=== PATIENT | female | born 1955 | race American Indian/Alaskan Native ===

== ENCOUNTER 2016-12-10 13:23 | Inpatient (IN) | payer OTHER ==
--- NOTE | 2016-12-10 14:07 | Emergency Department Report ---
Chief Complaint: Chest Pain Stated Complaint: CHEST PAIN/FEVER/HEADACHE Time Seen by Provider: 12/10/16 13:56 - HPI History of Present Illness: 51-year-old female presents today with chest pain 4 days. Positive for cough and cold symptoms 2 weeks. Positive for subjective fever, nausea, shortness of breath post coughing. Denies abdominal pain. - ROS Review of Systems: Per HPI - Exam Vital Signs: Vital Signs 12/10/16 13:49 Temperature 98.3 F Pulse Rate 68 Respiratory 20 Rate Blood Pressure 151/83 O2 Sat by Pulse 97 Oximetry Physical Exam: General: 61-year-old female in no acute distress. Well-developed, well- nourished. CV: Regular rate and rhythm. Lungs: Rhonchi noted over the right lower lobe. MSE screening note: Focused history and physical exam performed. Due to findings the following was ordered: ED Disposition for MSE Condition: Stable
[2016-12-10 14:40] LABS: Basophils % (Auto) 0.2 % (0.0-1.8); Hematocrit 40.9 % (30.3-42.9); Hemoglobin 13.2 gm/dl (10.1-14.3); Mean Corpuscular HGB Conc 32 % (30-34); Mean Corpuscular Hemoglobin 28 pg (28-32); Mean Corpuscular Volume 88 fl (79-97); Platelet Count 200 K/mm3 (140-440); Red Blood Count 4.67 M/mm3 (3.65-5.03); Red Cell Distribution Width 13.9 % (13.2-15.2); White Blood Count 8.9 K/mm3 (4.5-11.0)
[2016-12-10 14:59] LABS: Anion Gap 17 mmol/L; BUN/Creatinine Ratio 8.75; Blood Urea Nitrogen 7 mg/dL (7-17); Calcium 8.6 mg/dL (8.4-10.2); Carbon Dioxide 29 mmol/L (22-30); Chloride 101.4 mmol/L (98-107); Glucose 126 mg/dL (65-100); Potassium 4.1 mmol/L (3.6-5.0); Sodium 143 mmol/L (137-145)
[2016-12-10 15:02] LABS: Creatine Kinase MB 1.9 ng/mL (0.0-4.0)
--- NOTE | 2016-12-10 15:11 | XRay Report ---
PORTABLE CHEST INDICATION: Chest pain. COMPARISON: None similar. FINDINGS: Portable, frontal chest radiograph demonstrates mild exaggerated cardiomediastinal silhouette/possible cardiomegaly with slight interstitial bronchovascular prominence and minimal fluid or thickening along the right minor fissure. No large pleural effusions. Thoracic spondylosis. CONCLUSION: Slight/early interstitial edema possibly developing versus other possibilities as chronic interstitial lung disease. Please also correlate clinically and with prior chest imaging, if available. Thank you for the opportunity to participate in this patient's care.
[2016-12-10] MEDS ORDERED: XOPENEX IH ONE (22:23)
[2016-12-10] MEDS ORDERED: ATROVENT IH ONE (22:23)
[2016-12-10] MEDS ORDERED: TESSALON PERLES PO ONE (22:24)
[2016-12-10] MEDS ORDERED: NITRO-BID 2% TP ONE (22:28)
[2016-12-10] MEDS ORDERED: CATAPRES PO ONE (22:28)
[2016-12-10] MEDS ORDERED: ASPIRIN PO ONE (22:28)
--- NOTE | 2016-12-10 22:28 | Emergency Department Report ---
HPI - General Chief Complaint: Chest Pain Time Seen by Provider: 12/10/16 13:56 - HPI HPI: Room 10 The patient is a 61-year-old female presenting with chief complaint of cough and chest pain. The patient states for past 2 weeks is her cough was originally nonproductive has then become productive of originally greenish yellow and brown sputum. The patient denies rhinorrhea nausea vomiting or diarrhea. Patient does admit to shortness of breath and resolution may have had a subjective fever. The patient states for past 2 days she would have a substernal chest pain described as heaviness whenever she coughs. The patient states DayQuil helps her symptoms. Location: Chest, lungs Duration: 2 weeks Quality: Heaviness Severity: Moderate Modifying factors: [see above] Context: [see above] Mode of transportation: Unknown ED Past Medical Hx - Past Medical History Hx Hypertension: Yes Hx Headaches / Migraines: Yes - Surgical History Hx Breast Surgery: Yes (bilateral reduction) Additional Surgical History: hysterectomy - Family History Family history: no significant - Social History Smoking Status: Former Smoker (none 23 years) Substance Use Type: None - Medications Home Medications: Home Medications Medication Instructions Recorded Confirmed Last Taken Type Hydrochlorothiazide [HCTZ] 25 mg PO QDAY 12/10/16 12/10/16 12/09/16 History Metoprolol [Lopressor TAB] 50 mg PO DAILY 12/10/16 12/10/16 12/09/16 History ED Review of Systems ROS: Stated complaint: CHEST PAIN/FEVER/HEADACHE Other details as noted in HPI Comment: All other systems reviewed and negative Constitutional: fever. denies: chills Eyes: denies: eye pain, eye discharge, vision change ENT: denies: ear pain, throat pain Respiratory: cough, shortness of breath. denies: wheezing Cardiovascular: chest pain. denies: palpitations Endocrine: no symptoms reported Gastrointestinal: denies: abdominal pain, nausea, diarrhea Genitourinary: denies: urgency, dysuria, discharge Musculoskeletal: denies: back pain, joint swelling, arthralgia Skin: denies: rash, lesions Neurological: denies: headache, weakness, paresthesias Psychiatric: denies: anxiety, depression Hematological/Lymphatic: denies: easy bleeding, easy bruising Physical Exam - Physical Exam Vital Signs: Vital Signs 12/10/16 12/10/16 13:49 21:57 Temperature 98.3 F 98.2 F Pulse Rate 68 54 L Respiratory 20 20 Rate Blood Pressure 151/83 Blood Pressure 182/82 [Right] O2 Sat by Pulse 97 99 Oximetry Physical Exam: GENERAL: The patient is well-developed well-nourished female lying on stretcher not appearing to be in acute distress. [] HEENT: Normocephalic. Atraumatic. Extraocular motions are intact. Patient has moist mucous membranes. NECK: Supple. Trachea midline CHEST/LUNGS: Trace rhonchi, faint wheezing. There is no respiratory distress noted. HEART/CARDIOVASCULAR: Regular. There is no tachycardia. There is no gallop rub or murmur. ABDOMEN: Abdomen is soft, nontender. Patient has normal bowel sounds. There is no abdominal distention. SKIN: There is no rash. There is no diaphoresis. NEURO: The patient is awake, alert, and oriented. The patient is cooperative. The patient has normal speech and gait. MUSCULOSKELETAL: There is no evidence of acute injury. ED Course Vital Signs 12/10/16 12/10/16 13:49 21:57 Temperature 98.3 F 98.2 F Pulse Rate 68 54 L Respiratory 20 20 Rate Blood Pressure 151/83 Blood Pressure 182/82 [Right] O2 Sat by Pulse 97 99 Oximetry ED Medical Decision Making - Lab Data Result diagrams: 12/10/16 14:25 12/10/16 14:25 Laboratory Tests 12/10/16 12/10/16 12/10/16 14:25 14:25 14:25 WBC 8.9 RBC 4.67 Hgb 13.2 Hct 40.9 MCV 88 MCH 28 MCHC 32 RDW 13.9 Plt Count 200 Lymph % (Auto) 32.8 [place] % (Auto) 6.3 Eos % (Auto) 1.0 Baso % (Auto) 0.2 Lymph # 2.9 [place] # 0.6 Eos # 0.1 Baso # 0.0 Seg Neutrophils % 59.7 Seg Neutrophils # 5.3 Sodium 143 Potassium 4.1 Chloride 101.4 Carbon Dioxide 29 Anion Gap 17 BUN 7 Creatinine 0.8 Estimated GFR > 60 BUN/Creatinine Ratio 8.75 Glucose 126 H Calcium 8.6 Total Creatine Kinase 179 H CK-MB (CK-2) 1.9 CK-MB (CK-2) Rel Index 1.0 Troponin T < 0.010 NT-Pro-B Natriuret Pep Lipase 32 12/10/16 12/10/16 12/10/16 16:49 20:09 22:35 WBC RBC Hgb Hct MCV MCH MCHC RDW Plt Count Lymph % (Auto) [place] % (Auto) Eos % (Auto) Baso % (Auto) Lymph # [place] # Eos # Baso # Seg Neutrophils % Seg Neutrophils # Sodium Potassium Chloride Carbon Dioxide Anion Gap BUN Creatinine Estimated GFR BUN/Creatinine Ratio Glucose Calcium Total Creatine Kinase CK-MB (CK-2) CK-MB (CK-2) Rel Index Troponin T < 0.010 < 0.010 NT-Pro-B Natriuret Pep 151.1 Lipase - EKG Data -: EKG Interpreted by Me EKG shows normal: sinus rhythm Rate: normal - EKG Data When compared to previous EKG there are: previous EKG unavailable Interpretation: nonspecific ST-T wave [place] (deep T-wave inversions in leads 1, 2 , 3, aVF, V2, V3, V4, V5, V6. ST segment depressions in leads 2, 3, aVF, V3, V4 , V5, V6) - Radiology Data Radiology results: image reviewed (chest x-ray) interpreted by me: Chest x-ray-no focal infiltrates, no pneumothorax - Differential Diagnosis ACS, pneumonia, bronchitis, CHF Critical care attestation.: If time is entered above; I have spent that time in minutes in the direct care of this critically ill patient, excluding procedure time. ED Disposition Clinical Impression: Chest pain, T wave inversion in EKG, Cough Disposition: OP ADMITTED IP TO THIS HOSP Is pt being admited?: Yes Does the pt Need Aspirin: Yes Condition: Fair Instructions: Chest Pain (ED) Referrals: PRIMARY CARE, [Primary Care Provider] - 3-5 Days Time of Disposition: 22:42 (hospitalist notified)
--- NOTE | 2016-12-10 22:40 | History and Physical Report ---
History of Present Illness Date of examination: 12/10/16 History of present illness: 61-year-old woman history of hypertension, migraine comes emergency room with complaints of cough productive of yellow-brown sputum 2 weeks. Admits to shortness of breath. 2 days ago she started experience chest pain in the epigastric area which she describes a dull pain, intermittent in nature, unable to say how long it last for, intensity [place], no radiation, she cannot identify exacerbating or relieving factors. Admits to nausea, no diaphoresis or palpitation Patient denies abdominal pain, hematochezia, dysuria, frequency, focal weakness , dysarthria, fever chills, polydipsia polyuria, hot or cold intolerance, easy bruisability, or rash or bleeding from mucosal membrane, rhinorrhea, epistaxis, earache, tinnitus, blurry vision, eye discharge, anxiety, depression. Other review of systems negative PAST SURGICAL HISTORY: Breast reduction, hysterectomy SOCIAL HISTORY: Denies alcohol, tobacco, drugs FAMILY HISTORY: Hypertension Medications and Allergies Allergies Allergy/AdvReac Type Severity Reaction Status Date / Time lisinopril Allergy Angioedema Verified 12/22/14 16:19 Home Medications Medication Instructions Recorded Confirmed Last Taken Type Hydrochlorothiazide [HCTZ] 25 mg PO QDAY 12/10/16 12/10/16 12/09/16 History Metoprolol [Lopressor TAB] 50 mg PO DAILY 12/10/16 12/10/16 12/09/16 History Exam - Physical Exam Narrative exam: Gen. appearance: Patient lying in bed, no apparent distress HEENT: Normocephalic, atraumatic, pupils equally round and reactive to light, extraocular movement intact, and no sclericterus,. No JVD or thyromegaly or nodule,neck supple, no carotid bruit ,mucous membranes moist, no exudate or erythema Heart: S1, S2, regular rate and rhythm Lungs: Decreased breath sounds bilaterally, breathing comfortable Abdomen: Positive bowel sounds, nontender, nondistended, no organomegaly Extremity: No edema, cyanosis, clubbing Skin: No rash, nodules, warm, dry Neuro: Oriented 3, cranial nerves II-12 intact, speech is fluent, motor and sensory intact - Constitutional Vitals: Temp Pulse Resp BP Pulse Ox 98.2 F 54 L 20 182/82 99 12/10/16 21:57 12/10/16 21:57 12/10/16 21:57 12/10/16 21:57 12/10/16 21:57 Results - Labs CBC & Chem 7: 12/10/16 14:25 12/10/16 14:25 Labs: Abnormal lab results 12/10/16 12/10/16 Range/Units 14:25 14:25 Glucose 126 H (65-100) mg/dL Total Creatine Kinase 179 H (30-135) units/L - Imaging and Cardiology EKG: image reviewed Chest x-ray: image reviewed Assessment and Plan Acute bronchitis Chest pain, rule out ACS Hypertension Admits medicine Start IV steroids, neb eyes treatment, antibiotics Check cardiac enzymes, lipid profile and obtain a stress test Start DVT prophylaxis, aspirin, IV morphine Continue outpatient medications
[2016-12-10] MEDS ORDERED: MILK OF MAGNESIA PO PRN (23:18)
[2016-12-10] MEDS ORDERED: AMBIEN PO PRN (23:18)
[2016-12-10] MEDS ORDERED: ZOFRAN IV PRN (23:18)
[2016-12-10] MEDS ORDERED: PERCOCET 5/325 PO PRN (23:18)
[2016-12-10] MEDS ORDERED: DULCOLAX PR PRN (23:18)
[2016-12-10] MEDS ORDERED: SODIUM CHLORIDE FLUSH SYRINGE 10 ML IV PRN (23:18)
[2016-12-10] MEDS ORDERED: TYLENOL PO PRN (23:18)
[2016-12-11] MEDS: DUONEB 0.5 MG-3 MG/3 ML SOLN IH SCH ×4 (03:14→19:37)
[2016-12-11 06:06] LABS: Basophils % (Auto) 0.1 % (0.0-1.8); Eosinophils % (Auto) 0.3 % (0.0-4.3); Hematocrit 38.6 % (30.3-42.9); Hemoglobin 12.4 gm/dl (10.1-14.3); Mean Corpuscular HGB Conc 32 % (30-34); Mean Corpuscular Hemoglobin 28 pg (28-32); Mean Corpuscular Volume 87 fl (79-97); Platelet Count 186 K/mm3 (140-440); Red Blood Count 4.42 M/mm3 (3.65-5.03); Red Cell Distribution Width 13.8 % (13.2-15.2); White Blood Count 9.4 K/mm3 (4.5-11.0)
[2016-12-11 06:15] LABS: Anion Gap 18 mmol/L; BUN/Creatinine Ratio 13.33; Blood Urea Nitrogen 8 mg/dL (7-17); Calcium 8.5 mg/dL (8.4-10.2); Carbon Dioxide 26 mmol/L (22-30); Chloride 102.7 mmol/L (98-107); Glucose 190 mg/dL (65-100); Potassium 3.9 mmol/L (3.6-5.0); Sodium 143 mmol/L (137-145)
[2016-12-11 06:19] LABS: Creatine Kinase MB 1.5 ng/mL (0.0-4.0)
[2016-12-11 08:42] LABS: Creatine Kinase MB 1.7 ng/mL (0.0-4.0)
[2016-12-11] MEDS ORDERED: LEXISCAN IV ONE (09:34)
--- NOTE | 2016-12-11 10:25 | Admit Criteria Form ---
Admission Criteria Documentation: PULMONARY DISEASE GRG Clinical Indications for Admission to Inpatient Care ( Place 'X' for any and all applicable criteria): Hospital admission is needed for appropriate care of the patient because of ANY ONE of the following(1): [ ]I. Impending or actual respiratory arrest ( Use Respiratory Failure Criteria for severe respiratory disease and long-term mechanical ventilation patients) (4) [ ]II. Severe airflow or ventilation abnormalities (not responsive to emergency and observation care treatment as appropriate) as indicated by ANY ONE of the following(5)(6)(7)(8) : [ ]a) PCO2 > 42 mm Hg (5.6 kPa) and pH < 7.35 (new) [ ]b) Documented PCO2 increase > 5 mm Hg (0.7 kPa) from disease baseline [ ]c) Airflow measurements[A] < 60% of previous best or predicted ( e.g., PEF <300 L/minute) despite intensive emergent treatment[B] [ ]d) Required respiratory treatments that are performable only in acute inpatient setting [X ]III. Severe respiratory findings (not responsive to emergency and observation care treatment as appropriate) including ANY ONE of the following(5)(8)(9): []a) Respiratory distress as indicated by ALL of the following(5)(10): [ ]i) Patient with ANY ONE of the following: [ ]1) Dyspnea (difficulty breathing) [ ]2) Abnormal breathing pattern (eg, chest retractions) [ ]3) Tachypnea [ ]4) Other evidence of difficulty breathing [X ]ii) Evidence of respiratory compromise indicated by ANY ONE of the following: [ ]1) Hypoxemia [ ]2) Altered mental status [X ]3) Other evidence of respiratory compromise (eg, pulmonary edema on chest x-ray) [ ]b) Stridor [ ]c) Gross hemoptysis(11) [ ]d) Acute cyanosis [ ]IV. High-risk pulmonary infection as indicated by ANY ONE of the following( 19)(20)(21)(22): [ ]a) Temperature less than 95 degrees F(35 degrees C) or greater than 103.1 degrees F(39.5 degrees C) [ ]b) Hemodynamic instability that remains after emergency or observation level care (as appropriate) [ ]c) Immunocompromised patient (eg, AIDS, post transplant, neutropenic) [ ]d) History of severe COPD [ ]e) History of severely symptomatic congestive heart failure [ ]f) Other high-risk comorbidity (eg, poorly controlled diabetes, cirrhosis, chronic renal insufficiency) [ ]g) Hypoxemia (new) [ ]h) Outpatient, observation, or recovery facility therapy has failed, is not appropriate, or is not feasible [ ]V. Severe atelectasis or lung collapse(15)(16) [ ]. Tuberculosis requiring inpatient treatment as indicated by ANY ONE of the following(17)(18): [ ]a) New positive acid-fast bacilli sputum smear [ ]b) Positive acid-fast bacilli smear (under current treatment), with ANY ONE of the following: [ ]i) Unexposed household contacts [ ]ii) Infants or immunosuppressed household contacts [ ]iii) Patient unable or unwilling to avoid exposing others [ ]iv) Severe immunocompromised patient (eg, AIDS, post transplant, neutropenic) [ ]VII. Empyema or lung abscess(13)(14) [ ]VIII. Severe pulmonary arterial hypertension or pulmonary vascular disease requiring inpatient care indicated by ANY ONE of the following(24)(25): [ ]a) Initiation or change of vasodilators (IV, subcutaneous, or inhaled) or other vasoactive medications needed [ ]b) IV anticoagulation needed (eg, immediate anticoagulation necessary, alternatives not appropriate) [ ]c) Arterial or pulmonary artery catheter monitoring needed due to infusion or other treatment [ ]IX. Chronic lung disease with severe deterioration (not responsive to emergency and observation care treatment as appropriate) as indicated by ANY ONE of the following (6)(12): [ ]a) SaO2 5% below baseline in patient with chronic hypoxemia [ ]b) New requirement for supplemental oxygen to keep SaO2 at baseline or acceptable level [ ]c) Required supplemental oxygen performable only in acute inpatient setting [ ]d) Severe airflow or ventilation abnormalities [ ]e) Rapid rate of exacerbation onset [ ]f) Previously mobile patient unable to walk between rooms [ ]g) Inability to eat or sleep due to dyspnea [ ]h) Altered mental status [ ]X. Cystic fibrosis with severe deterioration as indicated by ANY ONE of the following(26)(27): [ ]a) Severe exacerbation that does not respond to intensified home therapy [ ]b) Pneumonia [ ]c) Hemoptysis [ ]d) Atelectasis [ ]e) Pneumothorax [ ]f) Respiratory failure [ ]g) Severe exacerbation with patient unable to perform prescribed treatments at home [ ]XI. Severe right heart failure as indicated by ANY ONE of the following(24) (25): [ ]a) Increasing organ failure (eg, liver congestion with significant and worsening or new elevation of transaminases) [ ]b) Anasarca [ ]c) Angina that requires inpatient care (eg, not treatable in emergency or observation level of care) [ ]d) Respiratory distress [ ]e) Syncope [ ]f) SBP < 90 mm Hg (new) [ ]XII. Injury requiring inpatient care (medical) as indicated by ANY ONE of the following(28): [ ]a) Significant inhalation injury (eg, smoke inhalation, other toxic inhalation) (29)(30)(31) [ ]b) Airway obstruction that remains or is unstable after emergency or observation level care(32) [ ]c) Severe pain requiring acute inpatient management [ ]d) Lung contusion [ ]e) Bronchial tree injury [ ]f) Air or fat emboli(33) [ ]g) Other injury not treatable in emergency or observation level care (eg, hemothorax) (34) [ ]XIII. Pulmonary hemorrhage or significant hemoptysis(11)(35)(36) [ ]XIV. Inpatient palliative care needed[C](37)(38)(39)(40) [ ]XV. Complications of lung transplant (eg, rejection, failure, respiratory infection) (23) [ ]XVI. Pulmonary Disease and ANY ONE of the following: [ ]a) General Admission Criteria [ ]b) Pediatric General Admission Criteria The original [facility] [employer] content created by [facility] [employer] has been revised. The portions of the content which have been revised are identified through the use of italic text or in bold, and [facility] has neither reviewed nor approved the modified material. All other unmodified content is copyright [facility]. Please see references footnoted in the original [facility] edition 2016 Admission Criteria Met: Yes
--- NOTE | 2016-12-11 10:46 | Progress Note ---
Assessment and Plan Assessment and plan: Patient is a 61 yo woman with a history of htn, migraines who presented with sob , cough with cp. EKG was reviewed and showed diffuse twi. CXR showed interstitial edema. ECHO and stress was ordered. I ordered CT chest with and without contrast for ?ILD vs viral pneumonitits which could explain the diffuse twi also. - Acute bronchitis, placed on iv steriods, will reduce and check ct chest - CP with abn. EKG but normal troponin x 2, possibly related to viral syndrome - HTN, chronic, slightly worse, will treat the above - DVt prophylaxis with sq lovenox full code dispositon: continue inpatient care, Echo stress ct chest w and w/o History Interval history: Patient was seen and examined. She c/o productive cough, sob but improved since admission. No new issues or complaints. She denies cp, n/v. Hospitalist Physical - Constitutional Vitals: Temp Pulse Resp BP Pulse Ox 98.2 F 62 18 116/67 97 12/10/16 21:57 12/11/16 00:37 12/11/16 00:37 12/11/16 00:37 12/11/16 03:11 General appearance: Present: no acute distress, mild distress - EENT Eyes: Present: PERRL, EOM intact. Absent: scleral icterus ENT: hearing intact, clear oral mucosa, dentition normal - Neck Neck: Present: supple, normal ROM. Absent: rigidity, enlarged thyroid - Respiratory Respiratory effort: normal Respiratory: bilateral: other (inspiratory crackles) - Cardiovascular Rhythm: regular Heart Sounds: Present: S1 & S2 - Extremities Extremities: no ischemia, pulses intact, No edema Peripheral Pulses: within normal limits - Abdominal General gastrointestinal: soft, non-tender, non-distended, normal bowel sounds - Integumentary Integumentary: Present: clear, warm, dry - Psychiatric Psychiatric: appropriate mood/affect - Neurologic Neurologic: CNII-XII intact, no focal deficits, moves all extremities - Allied Health Allied health notes reviewed: nursing Results - Labs CBC & Chem 7: 12/11/16 05:19 12/11/16 05:19 Labs: Laboratory Last Values WBC 9.4 K/mm3 (4.5-11.0) 12/11/16 05:19 RBC 4.42 M/mm3 (3.65-5.03) 12/11/16 05:19 Hgb 12.4 gm/dl (10.1-14.3) 12/11/16 05:19 Hct 38.6 % (30.3-42.9) 12/11/16 05:19 MCV 87 fl (79-97) 12/11/16 05:19 MCH 28 pg (28-32) 12/11/16 05:19 MCHC 32 % (30-34) 12/11/16 05:19 RDW 13.8 % (13.2-15.2) 12/11/16 05:19 Plt Count 186 K/mm3 (140-440) 12/11/16 05:19 Lymph % (Auto) 14.7 % (13.4-35.0) 12/11/16 05:19 [place] % (Auto) 2.8 % (0.0-7.3) 12/11/16 05:19 Eos % (Auto) 0.3 % (0.0-4.3) 12/11/16 05:19 Baso % (Auto) 0.1 % (0.0-1.8) 12/11/16 05:19 Lymph # 1.4 K/mm3 (1.2-5.4) 12/11/16 05:19 [place] # 0.3 K/mm3 (0.0-0.8) 12/11/16 05:19 Eos # 0.0 K/mm3 (0.0-0.4) 12/11/16 05:19 Baso # 0.0 K/mm3 (0.0-0.1) 12/11/16 05:19 Seg Neutrophils % 82.1 % (40.0-70.0) H 12/11/16 05:19 Seg Neutrophils # 7.8 K/mm3 (1.8-7.7) H 12/11/16 05:19 Sodium 143 mmol/L (137-145) 12/11/16 05:19 Potassium 3.9 mmol/L (3.6-5.0) 12/11/16 05:19 Chloride 102.7 mmol/L (98-107) 12/11/16 05:19 Carbon Dioxide 26 mmol/L (22-30) 12/11/16 05:19 Anion Gap 18 mmol/L 12/11/16 05:19 BUN 8 mg/dL (7-17) 12/11/16 05:19 Creatinine 0.6 mg/dL (0.7-1.2) L 12/11/16 05:19 Estimated GFR > 60 ml/min 12/11/16 05:19 BUN/Creatinine Ratio 13.33 % 12/11/16 05:19 Glucose 190 mg/dL (65-100) H 12/11/16 05:19 Calcium 8.5 mg/dL (8.4-10.2) 12/11/16 05:19 Total Creatine Kinase 133 units/L (30-135) 12/11/16 08:04 CK-MB (CK-2) 1.7 ng/mL (0.0-4.0) 12/11/16 08:04 CK-MB (CK-2) Rel Index 1.2 (0-4) 12/11/16 08:04 Troponin T < 0.010 ng/mL (0.00-0.029) 12/11/16 05:19 NT-Pro-B Natriuret Pep 151.1 pg/mL (0-900) 12/10/16 22:35 Triglycerides 261 mg/dL (2-149) H 12/10/16 23:42 Cholesterol 162 mg/dL (50-199) 12/10/16 23:42 LDL Cholesterol Direct 64 mg/dL (50-130) 12/10/16 23:42 HDL Cholesterol 46 mg/dL (40-59) 12/10/16 23:42 Cholesterol/HDL Ratio 3.52 % 12/10/16 23:42 Lipase 32 units/L (13-60) 12/10/16 14:25 - Imaging and Cardiology Chest x-ray: report reviewed (reviewed)
[2016-12-11] MEDS: ZITHROMAX 500 MG in NACL 0.9% 250ML 250 ML IV SCH (13:21)
[2016-12-11] MEDS: BABY ASPIRIN PO SCH (13:22)
[2016-12-11] MEDS: LOVENOX SUB-Q SCH (13:22)
--- NOTE | 2016-12-11 13:28 | Treadmill Report ---
NUCLEAR PERFUSION SCAN REFERRING PHYSICIAN: Keya Mendieta MD PROTOCOL: The patient was brought to stress lab in a postabsorptive state, given 10 mCi of technetium 99m at rest. The patient underwent rest imaging: The patient underwent Lexiscan stress test. At peak stress, the patient was given 26 mCi of technetium 99m. Shortly thereafter, the patient underwent stress imaging. Raw imaging reveals mild GI artifact, no significant motion artifact. SPECT imaging examined carefully in the horizontal long axis, vertical long axis, and short axis views. There is no evidence of significant fixed or reversible perfusion defects suggestive of prior infarction or ischemia. Gated wall motion reveals normal systolic thickening with a calculated ejection fraction of 65%. No TID. CONCLUSIONS: 1. Normal myocardial perfusion scan without evidence of active ischemia or prior infarction. 2. Normal left ventricular systolic performance without evidence of transient ischemic dilatation or stress-induced segmental wall motion abnormalities. JOB# [id number] KATHRYN/JUANA
--- NOTE | 2016-12-11 13:46 | Cat Scan Report ---
CT CHEST WITH AND WITHOUT CONTRAST HISTORY: Interstitial lung disease. TECHNIQUE: Helical CT before and after IV contrast. Sagittal and coronal reformatted images. FINDINGS: No comparison. Mild to moderate centrilobular emphysematous changes are identified bilaterally. There is no evidence for septal thickening, fibrosis or other signs of interstitial lung disease. No mass, infiltrate, pleural effusion or pneumothorax. Heart and mediastinal structures are unremarkable. The thoracic cage is intact. A left serratus anterior muscle lipoma measuring up to 6.5 cm is noted. IMPRESSION: Mild to moderate emphysematous changes. No evidence for interstitial lung disease.
--- NOTE | 2016-12-11 14:45 | Consultation ---
History of Present Illness Consult date: 12/11/16 Requesting physician: CASH KATZ Consult reason: other (abnormal EKG) History of present illness: The patient is a 61-year-old woman with a history of hypertension who presented with complaints of cough productive of yellow-brown sputum over the past 2 weeks. Over the past several days she has also been experiencing substernal chest discomfort with coughing and deep inspiration. No shortness of breath, palpitations, nausea, vomiting or diaphoresis. Troponin negative x 3. EKG shows deep t-wave inversions diffusely. Stress test this morning was negative for ischemia. Echo showed EF 55-60%. Past History Past Medical History: hypertension Past Surgical History: hysterectomy, Other (breast reduction ) Social history: denies: smoking, alcohol abuse, prescription drug abuse, IV drug use Family history: no significant family history Medications and Allergies Allergies Allergy/AdvReac Type Severity Reaction Status Date / Time lisinopril Allergy Angioedema Verified 12/22/14 16:19 Home Medications Medication Instructions Recorded Confirmed Last Taken Type Hydrochlorothiazide [HCTZ] 25 mg PO QDAY 12/10/16 12/10/16 12/09/16 History Metoprolol [Lopressor TAB] 50 mg PO DAILY 12/10/16 12/10/16 12/09/16 History Active Meds: Active Medications Acetaminophen (Tylenol) 650 mg PO Q4H PRN PRN Reason: Pain MILD(1-3)/Fever >100.5/ASENCIO Albuterol/Ipratropium (Duoneb 0.5 Mg-3 Mg/3 Ml Soln) 1 ampul IH Q6HRT [facility] Last Admin: 12/11/16 14:38 Dose: Not Given Aspirin (Baby Aspirin) 81 mg PO QDAY [facility] Last Admin: 12/11/16 13:22 Dose: 81 mg Bisacodyl (Dulcolax) 10 mg HI QDAY PRN PRN Reason: Constipation unrelieved by MOM Enoxaparin Sodium (Lovenox) 40 mg SUB-Q QDAY [facility] Last Admin: 12/11/16 13:22 Dose: 40 mg Azithromycin 500 mg/ Sodium (Chloride) 250 mls @ 250 mls/hr IV Q24HR KENZIE PRN Reason: Protocol Last Admin: 12/11/16 13:21 Dose: 250 mls/hr Magnesium Hydroxide (Milk Of Magnesia) 30 ml PO Q4H PRN PRN Reason: Constipation Methylprednisolone Sodium Succinate (Solu-Medrol) 40 mg IV QDAY K[facility] Ondansetron HCl (Zofran) 4 mg IV Q8H PRN PRN Reason: N/V unrelieved by Reglan Oxycodone/Acetaminophen (Percocet 5/325) 1 tab PO Q6H PRN PRN Reason: Pain, Moderate (4-6) Sodium Chloride (Sodium Chloride Flush Syringe 10 Ml) 10 ml IV PRN PRN PRN Reason: LINE FLUSH Zolpidem Tartrate (Ambien) 5 mg PO QHS PRN PRN Reason: Insomnia Review of Systems Constitutional: no fever, no chills Ears, nose, mouth and throat: no nasal congestion, no nasal discharge, no sinus pressure Cardiovascular: chest pain, no palpitations, no lightheadedness, no shortness of breath, no dyspnea on exertion Respiratory: cough with sputum, no shortness of breath, no dyspnea on exertion Gastrointestinal: no abdominal pain, no nausea, no vomiting, no diarrhea Genitourinary Female: no dysuria, no urgency Musculoskeletal: no neck stiffness, no neck pain, no myalgias Integumentary: no rash, no pruritis Neurological: no parathesias, no numbness, no tingling, no headaches Endocrine: no cold intolerance, no heat intolerance Hematologic/Lymphatic: no easy bruising, no easy bleeding Allergic/Immunologic: no urticaria, no wheezing Physical Examination Vital Signs Temp Pulse Resp BP Pulse Ox 98.3 F 68 20 151/83 97 12/10/16 13:49 12/10/16 13:49 12/10/16 13:49 12/10/16 13:49 12/10/16 13:49 General appearance: no acute distress HEENT: Positive: Normocephaly, Mucus Membranes Moist Neck: Positive: neck supple, trachea midline Cardiac: Positive: Reg Rate and Rhythm, S1/S2 Lungs: Positive: Decreased Breath Sounds Neuro: Positive: Grossly Intact Abdomen: Positive: Soft, Active Bowel Sounds. Negative: Tender Skin: Positive: Clear. Negative: Rash Extremities: Present: normal. Absent: edema Results 12/11/16 05:19 12/11/16 05:19 Cardiac Enzymes 12/11/16 12/11/16 Range/Units 05:19 08:04 CK-MB (CK-2) 1.5 1.7 (0.0-4.0) ng/mL Lipids 12/10/16 Range/Units 23:42 Triglycerides 261 H (2-149) mg/dL Cholesterol 162 (50-199) mg/dL HDL Cholesterol 46 (40-59) mg/dL Cholesterol/HDL Ratio 3.52 % CBC 12/11/16 Range/Units 05:19 WBC 9.4 (4.5-11.0) K/mm3 RBC 4.42 (3.65-5.03) M/mm3 Hgb 12.4 (10.1-14.3) gm/dl Hct 38.6 (30.3-42.9) % Plt Count 186 (140-440) K/mm3 Lymph # 1.4 (1.2-5.4) K/mm3 Johnston # 0.3 (0.0-0.8) K/mm3 Eos # 0.0 (0.0-0.4) K/mm3 Baso # 0.0 (0.0-0.1) K/mm3 Comprehensive Metabolic Panel 12/11/16 Range/Units 05:19 Sodium 143 (137-145) mmol/L Potassium 3.9 (3.6-5.0) mmol/L Chloride 102.7 (98-107) mmol/L Carbon Dioxide 26 (22-30) mmol/L BUN 8 (7-17) mg/dL Creatinine 0.6 L (0.7-1.2) mg/dL Glucose 190 H (65-100) mg/dL Calcium 8.5 (8.4-10.2) mg/dL - Imaging and Cardiology Echo: report reviewed EKG: image reviewed EKG interpretations - Telemetry EKG Rhythm: Sinus Rhythm - EKG Sinus rhythms and dysrhythmias: sinus rhythm Repolarization changes or abnormalities: ST or T wave suggestive of ischemia Assessment and Plan Abnormal EKG cardiac CTA in am for definitive diagnosis Atypical chest pain troponin negative x 3 stress MPI negative for ischemia Echo 11/2016: EF 55-60% Acute bronchitis per primary Hypertension Cardiac CTA in am for definitive diagnosis. Risks, benefits and alternatives were discussed with the patient and she agrees to proceed. The patient has been seen in conjunction with Dr. Dillard who agrees with the assessment and plan of care. Thank you Dr. Katz for allowing us to participate in the care of this patient.
[2016-12-11] MEDS: LOPRESSOR PO SCH (21:15)
[2016-12-12] MEDS: DUONEB 0.5 MG-3 MG/3 ML SOLN IH SCH ×3 (02:19→13:38)
--- NOTE | 2016-12-12 09:41 | Progress Note ---
Assessment and Plan Abnormal EKG await cardiac CTA results Atypical chest pain troponin negative x 3 stress MPI negative for ischemia Echo 11/2016: EF 55-60% Acute bronchitis per primary Hypertension Await cardiac CTA. Further recommendations to follow. The patient has been seen in conjunction with Dr. Dillard who agrees with the assessment and plan of care. Subjective Date of service: 12/12/16 Principal diagnosis: abnormal EKG Interval history: The patient is resting in bed. No chest pain or shortness of breath. Cough improved. Sinus rhythm on the monitor. Objective Last Vital Signs Temp 97.8 F 12/12/16 04:00 Pulse 66 12/12/16 07:45 Resp 16 12/12/16 07:45 BP 145/65 12/12/16 04:00 Pulse Ox 98 12/12/16 07:30 - Physical Examination General: No Apparent Distress HEENT: Positive: Normocephaly, Mucus Membranes Moist Neck: Positive: neck supple, trachea midline Cardiac: Positive: Reg Rate and Rhythm, S1/S2 Lungs: Positive: clear to auscultation Neuro: Positive: Grossly Intact Abdomen: Positive: Soft, Active Bowel Sounds. Negative: Tender Skin: Positive: Clear. Negative: Rash Extremities: Present: normal. Absent: edema - Imaging and Cardiology EKG: image reviewed Echo: report reviewed (11/2016: EF 55-60%) - Telemetry EKG Rhythm: Sinus Rhythm - EKG Sinus rhythms and dysrhythmias: sinus rhythm Repolarization changes or abnormalities: ST or T wave suggestive of ischemia
[2016-12-12 09:50] VITALS: BP 148/67
[2016-12-12] MEDS: LOPRESSOR PO SCH (10:13)
[2016-12-12] MEDS: LOVENOX SUB-Q SCH (10:14)
[2016-12-12] MEDS: BABY ASPIRIN PO SCH (10:14)
[2016-12-12] MEDS ORDERED: NACL ONE (10:29)
[2016-12-12] MEDS ORDERED: NITROSTAT SL ONE (10:43)
[2016-12-12] MEDS ORDERED: LOPRESSOR IV ONE (11:11)
[2016-12-12] MEDS: ZITHROMAX 500 MG in NACL 0.9% 250ML 250 ML IV SCH (12:16)
--- NOTE | 2016-12-12 13:27 | Event Note ---
Date: 12/12/16 Patient refusing cardiac CTA, stating that she doesn't want to be stuck for a new IV. I discussed the indications for cardiac CTA in detail and again offered a cardiac cath but she is refusing to proceed with any further cardiac testing. She expresses understanding of the potential consequences of not pursing further cardiac testing including heart attack, debility and . I have offered to schedule her a follow up appointment in our office but she states that she cannot afford to come to our office. She says she has a [facility] card and will follow up with her doctor at [facility]. I stressed the importance of follow up with her PCP as well as cardiology at [facility] and she expresses understanding.
--- NOTE | 2016-12-12 14:18 | Discharge Summary ---
Providers - Providers Date of Admission: 12/10/16 23:18 Date of discharge: 12/12/16 Attending physician: CASH LAN Primary care physician: PUMP REBUILDER Hospitalization Condition: Stable Hospital course: Patient is a 61 yo woman with a history of htn, migraines who presented with sob , cough with cp. EKG was reviewed and showed diffuse twi. CXR showed interstitial edema. ECHO and stress was ordered. I ordered CT chest with and without contrast for ?ILD vs viral pneumonitits which could explain the diffuse twi also. - Acute bronchitis, placed on iv steriods, will reduce and check ct chest - CP with abn. EKG but normal troponin x 2, possibly related to viral syndrome - HTN, chronic, slightly worse, will treat the above - DVt prophylaxis with sq lovenox full code dispositon: continue inpatient care, Echo stress ct chest w and w/o==> mild to moderate emphysematous changes. No evidence of interstitial lung disease. per Cardiology: "Patient refusing cardiac CTA, stating that she doesn't want to be stuck for a new IV. I discussed the indications for cardiac CTA in detail and again offered a cardiac cath but she is refusing to proceed with any further cardiac testing. She expresses understanding of the potential consequences of not pursing further cardiac testing including heart attack, debility and . I have offered to schedule her a follow up appointment in our office but she states that she cannot afford to come to our office. She says she has a [facility] card and will follow up with her doctor at [facility]. I stressed the importance of follow up with her PCP as well as cardiology at [facility] and she expresses understanding." Disposition: DISCHARGED TO HOME OR SELFCARE Time spent for discharge: 35 minutes Core Measure Documentation - Palliative Care Palliative Care/ Comfort Measures: Not Applicable - Core Measures Any of the following diagnoses?: none - VTE Discharge Requirements Deep Vein Thrombosis/Pulmonary Embolism Present on Admission: No Has pt received <5 days of overlap therapy or INR<2.0: No Anticoagulant overlap therapy prescribed at discharge: No Contraindication No Overlap Therapy order at DC: Not Indicated Exam - Physical Exam Narrative exam: GEN: WDWN, NAD, AWAKE, ALERT, ORIENTATED 3, BMI 38.1 HEENT: NCAT, PERRL, EOMI, OP CLEAR NECK: SUPPLE, NO THYROMEGALY, NO JVD, NO LAD CVS: RRR, NORMAL S1S2 LUNGS/CHEST: CTA B, NORMAL CHEST EXPANSION B, GOOD AIR ENTRY B ABD: SOFT NTND, GBS, NO REBOUND OR GUARDING EXT/SKIN: NO SIGNIFICANT EDEMA OR RASH MSK: FROM X 4 EXTREMITIES NEURO: CN 2-12 GROSSLY INTACT, NO new FOCAL DEFICITS PSY: CALM - Constitutional Vitals: Temp Pulse Resp BP Pulse Ox 97.7 F 68 16 148/67 98 12/12/16 08:00 12/12/16 13:41 12/12/16 13:41 12/12/16 08:00 12/12/16 07:30 Plan Activity: advance as tolerated (no strenous activites until cleared by PCP. ) Diet: low salt Follow up with: PRIMARY CARE,MD [Primary Care Provider] - 3-5 Days Forms: Discharge Signature Page Prescriptions: ALBUTEROL Inhaler [ProAir HFA Inhaler] 2 puff IH QID PRN #1 inhalation PRN Reason: Shortness Of Breath Azithromycin [Zithromax TAB] 250 mg PO QDAY #2 tablet methylPREDNISolone [Medrol Dose Ruddy] 1 mg PO DAILY #1 pack oxyCODONE /ACETAMINOPHEN [Percocet 5/325 mg] 1 tab PO Q6H PRN #15 tablet PRN Reason: Pain , Severe (7-10)
== END 2016-12-12 15:57 | disposition home or self-care (01) | DRG 203 ==
LOC: ED 13:23 → 4A 23:18
PROVIDERS: ADMIT Internal Medicine; ATTEND Internal Medicine
DX: J20.9 Acute bronchitis, unspecified (principal); R94.31 Abnormal electrocardiogram [ECG] [EKG]; G43.909 Migraine, unspecified, not intractable, without status migrainosus; Z90.710 Acquired absence of both cervix and uterus; Z82.49 Family history of ischemic heart disease and other diseases of the circulatory system; Z88.8 Allergy status to other drugs, medicaments and biological substances; Z98.82 Breast implant status; I10 Essential (primary) hypertension
CPT/HCPCS: 36415; 71010; 71270; 78452; 80048; 80061; 82550; 82553; 83690; 83880; 84484; 85025; 93005; 93010; 93017; 93306; 94640; A9502; J0456; J1650; J2785; J2920; J7050; Q9967